=== PATIENT | female | born 1965 | race Caucasian/White ===

== ENCOUNTER → 2021-05-09 | Emergency (ER) | payer OTHER ==
[~2021-05-09] VITALS: Ht 170.2 cm; Wt 52.6 kg
[~2021-05-09] MED LIST: SUMATRIPTAN SU100 MG PO
== END ==
LOC: ED 13:26
DX: S61.012A Laceration without foreign body of left thumb without damage to nail, initial encounter (principal); W26.0XXA Contact with knife, initial encounter; G43.909 Migraine, unspecified, not intractable, without status migrainosus; Z91.041 Radiographic dye allergy status
CPT/HCPCS: 12001; 99282-25